=== PATIENT | male | born 1945 | race Two or more races ===

== ENCOUNTER 2020-05-04 06:00 | Day surgery (SDC) | payer OTHER ==
[~2020-05-04 06:00] MED LIST: ARICEPT10 MG PO; ATORVASTATIN CA20 MG PO; FENOFIBRATE160 MG PO; NABUMETONE750 MG PO; OMEGA-31000 MG PO; OPTIMAL D31250 MCG PO; PROTONIX40 MG PO; TAMS0.4C PO
== END 2020-05-04 13:50 | disposition home or self-care (01) ==
LOC: CIR.AMB 06:00
PROVIDERS: ATTEND Colon & Rectal Surgery
DX: R15.9 Full incontinence of feces (principal); Z20.822 Contact with and (suspected) exposure to COVID-19
CPT/HCPCS: 64581; C1778

== ENCOUNTER 2020-05-18 06:00 | Day surgery (SDC) | payer OTHER | END 2020-05-18 12:14 | disposition home or self-care (01) | LOC: CIR.AMB 06:00 | PROVIDERS: ATTEND Colon & Rectal Surgery | DX: R15.9 Full incontinence of feces (principal); Z20.822 Contact with and (suspected) exposure to COVID-19 | CPT/HCPCS: 64590; 95971; L8679 ==